=== PATIENT | male | born 1990 | race Caucasian/White ===

== ENCOUNTER 2017-02-02 00:29 | Emergency (ER) | payer OTHER ==
[~2017-02-02] VITALS: Ht 177.8 cm; Wt 88.5 kg
[2017-02-02] MEDS ORDERED: TDAP [DIPH/PERTUSSIS/TET] 0.5 ML VIAL IM STA (00:33)
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
[2017-02-02] MEDS ORDERED: LIDOCAINE 1%-EPI 1:100,000 50 ML VIAL IJ ONE (00:47)
[2017-02-02] MEDS ORDERED: TDAP [DIPH/PERTUSSIS/TET] 0.5 ML VIAL IM ONE (00:47)
--- NOTE | 2017-02-02 00:49 | NUR ---
XRAY AT BEDSIDE.
--- NOTE | 2017-02-02 00:51 | NUR ---
[facility] AT BEDSIDE FOR LAC REPAIR.
[2017-02-02] MEDS ORDERED: LIDOCAINE 2%-EPI 1:100,000 30 ML VIAL TP ONE (01:00)
--- NOTE | 2017-02-02 01:41 | NUR ---
PT TO CT.
--- NOTE | 2017-02-02 01:57 | NUR ---
PT RETURNED FROM CT. [employer] AT BEDSIDE.
--- NOTE | 2017-02-02 03:55 | NUR ---
Patient discharged in stable condition under custody of [employer] . Written and verbal after care instructions given. Patient verbalizes understanding of instruction. ambulatory with a steady gait
[2017-02-02 03:56] VITALS: BP 125/68
== END 2017-02-02 03:56 ==
LOC: ER 00:34
DX: S21.212A Laceration without foreign body of left back wall of thorax without penetration into thoracic cavity, initial encounter (principal); Z23 Encounter for immunization; V03.10XA Pedestrian on foot injured in collision with car, pick-up truck or van in traffic accident, initial encounter; Y93.89 Activity, other specified; Y92.89 Other specified places as the place of occurrence of the external cause; Y99.8 Other external cause status
CPT/HCPCS: 70450-TC; 71010-TC; 72125-TC; 90715; A4606; A6402; J3490; Z7610

== ENCOUNTER 2018-11-17 22:20 | Emergency (ER) | payer OTHER ==
[~2018-11-17] VITALS: Ht 172.7 cm; Wt 74.8 kg
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
[2018-11-17] MEDS ORDERED: MIDAZOLAM HCL 2 MG/2ML VIAL ONE (22:42)
[2018-11-17] MEDS ORDERED: MIDAZOLAM HCL 5 MG/5ML VIAL IV ONE (23:00)
[2018-11-17 23:16] LABS: BASOPHILS % (AUTO) 0.2 % (0.0-2.0); EOSINOPHILS % (AUTO) 0.1 % (0.0-6.0); HEMATOCRIT 43 % (39-51); HEMOGLOBIN 14.2 g/dL (13.5-17.5); LYMPHOCYTES % (AUTO) 16.4 % (20.0-44.0); MEAN CORPUSCULAR HGB CONC 33 g/dl (31.0-36.0); MEAN CORPUSCULAR VOLUME 94 fL (80-96); MONOCYTES # (AUTO) 1.1 /CMM (0.1-1.30); MONOCYTES % (AUTO) 8.7 % (2.0-12.0); NEUTROPHILS # (AUTO) 9.2 /CMM (1.8-8.9); NEUTROPHILS % (AUTO) 74.6 % (43.0-81.0); PLATELET COUNT (AUTO) 257 /CMM (150-450); RED BLOOD CELL COUNT(AUTO) 4.52 MIL/uL (4.5-6.0); WHITE BLOOD COUNT (AUTO) 12.3 K/uL (4.3-11.0)
[2018-11-17 23:25] LABS: ALCOHOL, BLOOD < 3 mg/dL (0-0); CALCIUM, SERUM 9.7 mg/dL (8.5-10.1); CARBON DIOXIDE 29 mmol/L (21-32); CHLORIDE 98 mmol/L (98-107); CREATININE 1.6 mg/dL (0.6-1.3); GLUCOSE 85 mg/dL (74-106); POTASSIUM 4.4 mmol/L (3.5-5.1); SODIUM SERUM 137 mmol/L (136-145); UREA NITROGEN, BLOOD 49 mg/dL (7-18)
[2018-11-18] MEDS ORDERED: IV NS 0.9% 1,000 ML BAG IV ONE
[2018-11-18 00:02] VITALS: BP 134/60
--- NOTE | 2018-11-18 00:54 | NUR ---
Patient given written and verbal discharge instructions. Patient verbalizes understanding of instructions. Patient is ambulatory with steady gait. Refuses offer of correction placement. Patient given list of available shelters in surrounding area. IV removed. Catheter intact and site benign. Pressure and 4x4 applied to site. No bleeding noted.
== END 2018-11-18 00:56 | disposition home or self-care (01) ==
LOC: ER 22:27
DX: F15.10 Other stimulant abuse, uncomplicated (principal); F20.9 Schizophrenia, unspecified; F31.9 Bipolar disorder, unspecified; Z60.2 Problems related to living alone
CPT/HCPCS: 36415; 80048; 80307; 85025; 96361; 96374; 99283; J2250; J7030; G0480

== ENCOUNTER 2020-03-29 03:59 | Emergency (ER) | payer SELFPAY ==
[~2020-03-29] VITALS: Ht 172.7 cm; Wt 81.6 kg
[2020-03-29 04:35] VITALS: BP 163/79
--- NOTE | 2020-03-29 04:38 | NUR ---
PT BIB[facility]LF C/O UPPER EXT REDDNESS AND PAIN. AAOX4. VITAL SIGNS STABLE. NO ACUTE DISTRESS.
[2020-03-29] MEDS ORDERED: LIDOCAINE 1%-EPI 1:100,000 20 ML VIAL ONE (05:24)
--- NOTE | 2020-03-29 05:31 | NUR ---
Patient does not wish to proceed with medical care recommended by Dr. Yeung. Patient given information related to possible complications, up to and including , which could occur as a result of leaving the hospital at this time. Patient verbalizes understanding of risks involved due to leaving against medical advice. Patient refused to wait to sign AMA form.
== END 2020-03-29 05:35 | disposition left against medical advice (07) ==
LOC: ER 04:01
DX: L02.414 Cutaneous abscess of left upper limb (principal); Z60.2 Problems related to living alone
CPT/HCPCS: 99281; J3490

== ENCOUNTER 2020-08-14 04:03 | Inpatient (IN) | payer SELFPAY ==
[~2020-08-14] VITALS: Ht 165.1 cm; Wt 70.3 kg
--- NOTE | 2020-08-14 04:09 | NUR ---
ZACARIAS 38 FROM FOR C/O BIZARRE BEHAVIOR AND RUNNING NAKED AROUND. PT AWAKE AND CONFUSED. BREATHING EVENLY. PT UNABLE TO STAY STILL IN BED BUT REMAINED CALM AND COOPERATIVE. IN BED 10 ER. WILL CONT TO MONITOR ,
[2020-08-14 04:20] LABS: BASOPHILS % (AUTO) 0.2 % (0.0-2.0); HEMATOCRIT 40 % (39-51); HEMOGLOBIN 13.6 g/dL (13.5-17.5); LYMPHOCYTES # (AUTO) 1.2 /CMM (0.8-4.8); LYMPHOCYTES % (AUTO) 11.7 % (20.0-44.0); MEAN CORPUSCULAR HGB CONC 34 g/dl (31.0-36.0); MEAN CORPUSCULAR VOLUME 91 fL (80-96); MONOCYTES # (AUTO) 1.5 /CMM (0.1-1.30); NEUTROPHILS # (AUTO) 7.9 /CMM (1.8-8.9); NEUTROPHILS % (AUTO) 74.1 % (43.0-81.0); PLATELET COUNT (AUTO) 244 /CMM (150-450); RED BLOOD CELL COUNT(AUTO) 4.38 MIL/uL (4.5-6.0); WHITE BLOOD COUNT (AUTO) 10.6 K/uL (4.3-11.0)
[2020-08-14 04:36] LABS: ALANINE AMINOTRANSFERASE 226 U/L (12-78); ALBUMIN 4.9 g/dL (3.4-5.0); ALKALINE PHOSPHATASE 71 U/L (46-116); ASPARTATE AMINOTRANSFERASE 843 U/L (15-37); BILIRUBIN,DIRECT 0.6 mg/dL (0.0-0.2); BILIRUBIN,TOTAL 2.7 mg/dL (0.2-1.0); CALCIUM, SERUM 9.1 mg/dL (8.5-10.1); CARBON DIOXIDE 21 mmol/L (21-32); CHLORIDE 95 mmol/L (98-107); CREATININE 2.3 mg/dL (0.6-1.3); GLUCOSE 99 mg/dL (74-106); POTASSIUM 3.8 mmol/L (3.5-5.1); SODIUM SERUM 134 mmol/L (136-145); TOTAL PROTEIN, SERUM 8.6 g/dL (6.4-8.2)
[2020-08-14 04:38] LABS: ACETAMINOPHEN 0 ug/ml (10-30)
[2020-08-14 04:39] LABS: ALCOHOL, BLOOD < 3 mg/dL (0-0)
[2020-08-14 04:40] LABS: UREA NITROGEN, BLOOD 120 mg/dL (7-18)
[2020-08-14 05:04] LABS: ALBUMIN 4.8 g/dL (3.4-5.0); BILIRUBIN,TOTAL 2.7 mg/dL (0.2-1.0); CALCIUM, SERUM 9.1 mg/dL (8.5-10.1); CREATININE 2.3 mg/dL (0.6-1.3); POTASSIUM 4.2 mmol/L (3.5-5.1); TOTAL PROTEIN, SERUM 8.5 g/dL (6.4-8.2)
[2020-08-14] MEDS ORDERED: LORAZEPAM INJ 2 MG/ML VIAL ONE ×2 (05:13→05:39)
[2020-08-14] MEDS ORDERED: ONDANSETRON HCL/PF 4 MG/2 ML VIAL IVP PRN (05:30)
[2020-08-14] MEDS ORDERED: Z GUARD REMEDY 2 OZ OINT TP PRN (05:30)
[2020-08-14] MEDS ORDERED: IV NS 0.9% 1,000 ML IV PRN (05:30)
[2020-08-14] MEDS ORDERED: IV NS 0.9% 1,000 ML BAG IV ONE (05:30)
[2020-08-14] MEDS ORDERED: ACETAMINOPHEN 325 MG TABLET PO PRN ×2 (05:30→08:30)
[2020-08-14] MEDS ORDERED: LORAZEPAM INJ 2 MG/ML VIAL IVP ONE (05:30)
[2020-08-14 05:33] LABS: BILIRUBIN,URINE Negative (NEGATIVE); COLOR,URINE YELLOW (YELLOW); LEUKOCYTE ESTERASE ,URINE Negative (NEGATIVE); NITRITE, URINE Negative (NEGATIVE); PH,URINE 5.5 (5.0-8.0); PROTEIN,URINE 100 mg/dl (NEGATIVE); UGLUCOSE Negative (NEGATIVE); UROBILINOGEN,URINE 0.2 EU/dL (0.2)
[2020-08-14] MEDS ORDERED: HALOPERIDOL LACTATE INJ 5 MG/ML VIAL ONE (05:52)
[2020-08-14 05:53] LABS: BACTERIA,URINE 2+ /HPF (None Seen); SQUAMOUS EPITHELIAL CELL,UR Few /HPF (None Seen); URINE AMORPHOUS URATE Few /HPF (None Seen)
[2020-08-14] MEDS ORDERED: HALOPERIDOL LACTATE INJ 5 MG/ML VIAL IM ONE (06:00)
[2020-08-14] MEDS ORDERED: LORAZEPAM INJ 2 MG/ML VIAL IV ONE (06:00)
--- NOTE | 2020-08-14 08:04 | NUR ---
BED 120
--- NOTE | 2020-08-14 08:06 | NUR ---
REPORT GIVEN TO JESSICA GARCÍA
--- NOTE | 2020-08-14 08:44 | NUR ---
THE PATIENT IS TRANSFERED TO ROOM 120 IN STABLE CONDITION.
--- NOTE | 2020-08-14 08:45 | NUR ---
RN NOTE PT TRANSFERRED FROM ED TO ROOM 102, PT IS SLEEPING. ALL PT SAFETY PRECAUTIONS IN PLACE, WILL CONT TO MONITOR
[2020-08-14 09:00] VITALS: BP 106/64
--- NOTE | 2020-08-14 09:15 | NUR ---
RN NOTE PT DROWSY, A/Ox2, BREATHING RA SPO2 98% WITH NO SIGNS OF RESP DISTRESS OR SOB. PT COOPERATIVE. PT DENIES PAIN. PT RAC #18 FLUSHED PATENT AND INTACT, WILL BEGIN INFUSING NS @ 125ML/HR SHORTLY. ALL PT SAFETY PRECAUTIONS IN PLACE, WILL CONT TO MONITOR
[2020-08-14] MEDS: PANTOPRAZOLE 40 MG TABLET.DR PO SCH (10:08)
[2020-08-14] MEDS: IV NS 0.9% 1,000 ML IV SCH ×2 (10:08→18:29)
[2020-08-14 14:20] LABS: CREATININE, URINE 71.8 MG/DL (30.0-125.0); URINE TOTAL PROTEIN 40.9 mg/dL (0-11.9)
[2020-08-14 14:32] LABS: BILIRUBIN,URINE NEGATIVE (NEGATIVE); COLOR,URINE YELLOW (YELLOW); LEUKOCYTE ESTERASE ,URINE NEGATIVE (NEGATIVE); NITRITE, URINE NEGATIVE (NEGATIVE); PH,URINE 5.5 (5.0-8.0); PROTEIN,URINE TRACE mg/dl (NEGATIVE); UGLUCOSE NEGATIVE (NEGATIVE); UROBILINOGEN,URINE 0.2 EU/dL (0.2)
[2020-08-14 15:53] LABS: BACTERIA,URINE RARE /HPF (None Seen); HYALINE CASTS, URINE Few /LPF (None Seen); RBC,URINE 21-50 /HPF (0-2); SQUAMOUS EPITHELIAL CELL,UR 0-2 /HPF (None Seen); URIC ACID CRYSTALS,URINE Moderate /HPF (None Seen); WBC,URINE 0-2 /HPF (0-3)
[2020-08-14 15:54] LABS: EOSINOPHIL,URINE None Seen
[2020-08-14 16:00] VITALS: BP 106/69
--- NOTE | 2020-08-14 19:00 | NUR ---
RN NOTE PT IN STABLE CONDITION. ALL PT SAFETY PRECAUTIONS IN PLACE. WILL ENDORSE DAVID TO ONCOMING RN
--- NOTE | 2020-08-14 19:30 | NUR ---
MS RN OPENING NOTES PATIENT IN BED WITH EYES CLOSED, SLEEPING. NO S/S OF RESPIRATORY DISTRESS. NO C/O PAIN AT THE MOMENT. R. AC IV IN PLACE RUNNING NS @125 ML/HR. SAFETY IN PLACE: BED IN LOWEST, LOCKED POSITION; BED ALARM IN PLACE, CALL LIGHT WITHIN REACH. WILL CONTINUE TO MONITOR.
[2020-08-15] VITALS: BP 103/53
[2020-08-15] MEDS: IV NS 0.9% 1,000 ML IV SCH ×2 (03:46→10:21)
[2020-08-15 06:33] LABS: BASOPHILS % (AUTO) 0.2 % (0.0-2.0); EOSINOPHILS % (AUTO) 2.1 % (0.0-6.0); HEMATOCRIT 36 % (39-51); HEMOGLOBIN 12.3 g/dL (13.5-17.5); LYMPHOCYTES # (AUTO) 1.7 /CMM (0.8-4.8); LYMPHOCYTES % (AUTO) 40.1 % (20.0-44.0); MEAN CORPUSCULAR HGB CONC 34 g/dl (31.0-36.0); MEAN CORPUSCULAR VOLUME 93 fL (80-96); MONOCYTES # (AUTO) 0.4 /CMM (0.1-1.30); MONOCYTES % (AUTO) 10.1 % (2.0-12.0); NEUTROPHILS # (AUTO) 2.1 /CMM (1.8-8.9); NEUTROPHILS % (AUTO) 47.5 % (43.0-81.0); PLATELET COUNT (AUTO) 181 /CMM (150-450); RED BLOOD CELL COUNT(AUTO) 3.89 MIL/uL (4.5-6.0); WHITE BLOOD COUNT (AUTO) 4.3 K/uL (4.3-11.0)
--- NOTE | 2020-08-15 06:48 | NUR ---
MS RN CLOSING PATIENT IN BED EATING CRACKERS. ABLE TO MAKE NEEDS KNOWN. ALL NEEDS ATTENDED. R. AC IV RUNNING @125 ML/HR FOR AGGRESSIVE IV RESUSCITATION. NO S/S OF DISTRESS. SAFETY KEPT IN PLACE THE WHOLE SHIFT: BED IN LOWEST, LOCKED POSITION; BED ALARM IN PLACE, CALL LIGHT WITHIN REACH. WILL ENDORSE CARE TO MORNING SHIFT NURSE.
[2020-08-15 06:57] LABS: THYROID STIMULATING HORMONE 6.042 uIU/mL (0.358-3.74)
[2020-08-15 07:08] LABS: CALCIUM, SERUM 7.8 mg/dL (8.5-10.1); CREATININE 0.7 mg/dL (0.6-1.3); MAGNESIUM 2.4 mg/dL (1.8-2.4); PHOSPHORUS 1.8 mg/dL (2.5-4.9)
--- NOTE | 2020-08-15 07:30 | NUR ---
RN OPENING NOTES Patient is alert and oriented with confusion. Noted with talking to self. Iv site to right arm noted with IV fluids running , well. Patient is in good stable condition. No s/s of respiratory distress. Patient teaching done regarding safety and fall precautions. Will continue to monitor. Call light with in reach.
[2020-08-15 08:00] VITALS: BP 117/64
[2020-08-15] MEDS: PANTOPRAZOLE 40 MG TABLET.DR PO SCH (08:33)
[2020-08-15] MEDS ORDERED: K PHOS NEUTRAL 250 MG TABLET PO ONE (12:30)
--- NOTE | 2020-08-15 16:10 | NUR ---
RN NOTES PATIENT ABOUT TO BE INTERVIEWED BY DR. GAGNON FOR PSYCH CONSULT BUT PATIENT WENT OUT OF THE HOSPITAL WITHOUT TELLING ANYONE AND WAS FOUND EATING DONUTS IN A NEARBY STORE, HE CAME BACK AND GAVE HIM ADVISE TO ASK FOR ASSISTANCE IF HE NEEDS ANYTHING. PATIENT THEN OPTED TO GO HOME AGAINST MEDICAL ADVISED DESPITE EXPLAINING THE RISK AND BENEFITS. PATIENT STILL INSISTED TO GO HOME. IV ACCESS REMOVED, AMA PAPERS SIGNED, REFUSED OTHER DISCHARGED PAPERS, WAS ADVISED TO SEE AND FOLLOW UP WITH HIS PRIMARY MD AND TO GO TO THE NEAREST EMERGENCY ROOM IN CASE HE NEEDS HELP. ALL BELONGINGS CHECKED AND RETURNED. CHARGE NURSE SIRI GODINEZ, [facility] REPRESENTATIVE BRENT, DR. MANI MARTINEZ INFORMED AND AWARE. INCIDENT REPORT ON FILE Unique Id: [id number]
[2020-08-16 08:06] LABS: COMPLEMENT C3, SERUM 83 mg/dL (82-167); COMPLEMENT C4, SERUM 20 mg/dL (12-38)
[2020-08-16 09:07] LABS: PTH, INTACT 35 pg/mL (15-65)
[2020-08-17 12:07] LABS: *SPE A/G RATIO 1.2 (0.7-1.7); *SPE ALBUMIN 3.1 g/dL (2.9-4.4); *SPE ALPHA-1-GLOBULIN 0.2 g/dL (0.0-0.4); *SPE ALPHA-2-GLOBULIN 0.6 g/dL (0.4-1.0); *SPE BETA GLOBULIN 0.8 g/dL (0.7-1.3); *SPE GLOBULIN, TOTAL 2.6 g/dL (2.2-3.9); *SPE M-SPIKE Not Observed g/dL (Not Observed)
[2020-08-18 09:07] LABS: *ANA ANTI-CENTROMERE B AB <0.2 AI (0.0-0.9); *ANA ANTI-DNA(DS) AB, QN 4 IU/mL (0-9); *ANA ANTI-JO-1 <0.2 AI (0.0-0.9); *ANA ANTICHROMATIN ANTIBODY <0.2 AI (0.0-0.9); *ANA RNP ANTIBODIES <0.2 AI (0.0-0.9); *ANA SJOGREN'S ANTI-SS-A <0.2 AI (0.0-0.9); *ANA SJOGREN'S ANTI-SS-B <0.2 AI (0.0-0.9); *ANAANTI-SCLERODERMA-70 AB <0.2 AI (0.0-0.9); *ANASMITH AB 0.2 AI (0.0-0.9)
== END 2020-08-15 16:10 | disposition left against medical advice (07) | DRG 917 ==
LOC: ER 04:03 → TELE1 08:15 → MEDSG1 08:47
PROVIDERS: ADMIT Family Medicine; ATTEND Family Medicine
DX: T43.621A Poisoning by amphetamines, accidental (unintentional), initial encounter (principal); N17.0 Acute kidney failure with tubular necrosis; G92 Toxic encephalopathy; M62.82 Rhabdomyolysis; E87.1 Hypo-osmolality and hyponatremia; F31.9 Bipolar disorder, unspecified; F20.9 Schizophrenia, unspecified; Z59.0 Homelessness; F15.90 Other stimulant use, unspecified, uncomplicated; E86.1 Hypovolemia; E86.0 Dehydration; R74.01 Elevation of levels of liver transaminase levels; E80.6 Other disorders of bilirubin metabolism; Y92.410 Unspecified street and highway as the place of occurrence of the external cause
CPT/HCPCS: 36415; 76770-TC; 80048-TC; 80053-TC; 80061-TC; 80076-TC; 81001; 82550-TC; 82553; 82570-TC; 83735-TC; 83970; 84100-TC; 84155; 84155-TC; 84165; 84300-TC; 84443-TC; 85025-TC; 85652-TC; 86225; 86235; 86706; 86803; 87081-TC; 87086-TC; 87340; C9803; G0378; G0480; J1630; J2060; J7030